=== PATIENT | female | born 1955 | race Hispanic/Latino ===

== ENCOUNTER 2020-10-13 09:35 | Outpatient (CLI) | payer BC, OTHER ==
--- NOTE | 2020-10-14 08:17 | Mammography Report ---
DIGITAL SCREENING MAMMOGRAM WITH TOMOSYNTHESIS WITH CAD, 10/13/2020 CLINICAL INFORMATION / INDICATION: Screening TECHNIQUE: Digital right 2D and 3D mammography with tomosynthesis was obtained in the craniocaudal a nd mediolateral oblique projections. Computer-Aided Detection (CAD) analysis was used for interpreta tion of this study. COMPARISON: 09/29/2019 FINDINGS: Breast Density: The breasts are extremely dense, which lowers the sensitivity of mammography. No dominant mass, suspicious calcifications, or architectural distortion in the right breast. Benign-appearing calcifications are again seen. IMPRESSION: No mammographic evidence of malignancy. Follow up recommendation: Routine yearly BI-RADS Category 2: Benign. A "normal" or negative report should not discourage follow up or biopsy of a clinically significant f inding. A written summary of these findings will be mailed to the patient. The patient will be entered into a mammography reporting system which will generate a reminder letter for the patient's next appointmen t at the appropriate interval. [employer] recommends yearly mammograms starting at age 40 and continuing as l binu as a woman is in good health. Breast MRI is recommended for women with an approximate 20-25% or greater lifetime risk of breast cancer, including women with a strong family history of breast or ova david cancer or who have been treated for Hodgkin's disease. Signer Name: Cbua Serrano MD Signed: 10/14/2020 8:13 AM Workstation Name: [id number]
== END 2020-10-13 09:36 | disposition home or self-care (01) ==
LOC: SPVWC 09:35
PROVIDERS: ATTEND Surgery
DX: Z12.31 Encounter for screening mammogram for malignant neoplasm of breast (principal); N64.89 Other specified disorders of breast
CPT/HCPCS: 77063